=== PATIENT | female | born 1995 | race African-American/Black ===

== ENCOUNTER 2016-12-06 15:48 | Emergency (ER) | payer BC ==
[~2016-12-06] VITALS: Ht 162.6 cm; Wt 68.0 kg
[~2016-12-06 15:48] MED LIST: CIPR-225 PO; CIPR-226 PO; CIPR500T78 PO; HYDR-3812 PO; LISD70CA3 PO; METR500T PO; METR500T21 PO; PROM25TA14 PO
[2016-12-06] MEDS ORDERED: [UNRECOGNIZED DRUG - REMARK] (16:28)
[2016-12-06] MEDS ORDERED: PREN-53 PO (16:28)
[2016-12-06 17:13] LABS: BILIRUBIN,URINE NEGATIVE (NEGATIVE); KETONES,URINE NEGATIVE (NEGATIVE); LEUKOCYTE ESTERASE ,URINE 1+ (NEGATIVE); NITRITE,URINE NEGATIVE (NEGATIVE); PH,URINE 6.5 (5-9); PROTEIN,URINE NEGATIVE (NEGATIVE); UROBILINOGEN,URINE NORMAL (NORMAL)
[2016-12-06 17:23] LABS: BASOPHILS % (AUTO) 0 % (0-10); EOSINOPHILS # (AUTO) 0.2 10^3/uL (0.0-0.3); EOSINOPHILS % (AUTO) 1 % (0-10); LYMPHOCYTES # (AUTO) 2.1 X 10^3 (1.0-4.0); LYMPHOCYTES % (AUTO) 18 % (12-44); MEAN CORPUSCULAR HEMOGLOBIN 31 PG (25-34); MEAN CORPUSCULAR HGB CONC 35 G/DL (32-36); MEAN CORPUSCULAR VOLUME 89 FL (80-99); MEAN PLATELET VOLUME 9.5 FL (7.4-10.4); MONOCYTES # (AUTO) 0.9 X 10^3 (0.0-1.0); MONOCYTES % (AUTO) 8 % (0-12); NEUTROPHILS # (AUTO) 8.7 X 10^3 (1.8-7.8); NEUTROPHILS % (AUTO) 73 % (42-75); PLATELET COUNT 250 10^3/uL (130-400); RED BLOOD COUNT 4.25 10^6/uL (4.35-5.85); RED CELL DISTRIBUTION WIDTH 13.2 % (10.0-14.5)
[2016-12-06 17:40] LABS: ALANINE AMINOTRANSFERASE 18 U/L (0-55); ALBUMIN 4.3 G/DL (3.2-4.5); ANION GAP 10 MMOL/L (5-14); ASPARTATE AMINO TRANSFERASE 16 U/L (5-34); BILIRUBIN,TOTAL 0.2 MG/DL (0.1-1.0); BLOOD UREA NITROGEN 5 MG/DL (7-18); BUN/CREATININE RATIO 8; CALCIUM 9.1 MG/DL (8.5-10.1); CARBON DIOXIDE 24 MMOL/L (21-32); CHLORIDE 103 MMOL/L (98-107); CREATININE SERUM 0.66 MG/DL (0.60-1.30); GFR ESTIMATED > 60; GLUCOSE 82 MG/DL (70-105); POTASSIUM 3.5 MMOL/L (3.6-5.0); SODIUM 137 MMOL/L (135-145); TOTAL PROTEIN 6.6 G/DL (6.4-8.2)
--- NOTE | 2016-12-06 18:10 | ED Syncope ---
General Chief Complaint: Dizziness/Syncope Stated Complaint: LOC Nursing Triage Note: PT TO ED 7 W/ C/O POSS SYNCOPAL EPISODE WHILE IN SHOWER TODAY. PT REPORTS SHE HAS DONE THIS BEFORE AT HER [employer] BUT WAS TOLD BY THE NURSE "I DON'T KNOW WHAT WOULD CAUSE THIS." PT REPORTS SHE IS ALSO 11WKS . History of Present Illness Time Seen by Provider: 18:05 Initial Comments The patient is a 21-year-old black female who is 11 weeks . She was taking a shower about 30 minutes prior to her arrival here and felt as if she were about to pass out. Her significant other observe this and she sank slowly to the floor. She appeared unresponsive for about 30 seconds but had no motor activity. She reports that she had 2 similar episodes last week. She is also had intermittent issues with nausea and vomiting. This did not seem to precede the previously described episode Timing/Prior Episodes: Single Episode Today Symptoms Prior to Episode: Lightheadedness Precipitating Factors: None Loss of Consciousness: No Loss of Consciousness Current Symptoms: Back to Normal Allergies and Home Medications Allergies Coded Allergies: cefaclor (Unverified Allergy, Unknown, 02/17/15) Home Medications (Reported) [id number]/Iron Fumarate/FA/Dss 1 Each Tablet 1 EACH PO (Reported) Constitutional: see HPI EENTM: no symptoms reported Respiratory: no symptoms reported Cardiovascular: no symptoms reported Gastrointestinal: nausea Genitourinary: no symptoms reported Musculoskeletal: no symptoms reported Skin: no symptoms reported Psychiatric/Neurological: No Symptoms Reported Past Kramjau-Xeglqu-Ppktmy Hx Patient Social History Alcohol Use: Denies Use Recreational Drug Use: No Smoking Status: Never a Smoker Recent Foreign Travel: No Contact w/Someone Who Travel: No Recent Infectious Disease Expo: No Recent Hopitalizations: No Physical Abuse Screen: No Sexual Abuse: No Immunizations Up To Date Tetanus Booster (TDap): Less than 5yrs PED Vaccines UTD: Yes Seasonal Allergies Seasonal Allergies: No Surgeries HX Surgeries: Yes Surgeries: Abdominal, Tonsillectomy Respiratory Hx Respiratory Disorders: No Cardiovascular Hx Cardiac Disorders: No Reproductive System Hx Reproductive Disorders: No Female Reproductive Disorders: Denies Genitourinary Hx Genitourinary Disorders: No Gastrointestinal Hx Gastrointestinal Disorders: Yes Gastrointestinal Disorders: C-Diff, Irritable Bowel Musculoskeletal Hx Musculoskeletal Disorders: No Endocrine Hx Endocrine Disorders: No HEENT HX ENT Disorders: No Cancer Hx Cancer: No Psychosocial Hx Psychiatric Problems: No Integumentary HX Skin/Integumentary Disorder: No Family Medical History Significant Family History: GI Disease Family Medial History: Patient reports no known family medical history. Physical Exam Vital Signs Vital Sign - Last 12Hours 12/06/16 16:13 Temp 99.0 Pulse 71 Resp 20 B/P 115/76 Pulse Ox 99 O2 Delivery Room Air Capillary Refill : Less Than 3 Seconds General Appearance: No Apparent Distress WD/WN HEENT: Normal ENT Inspection Cardiovascular: Regular Rate, Rhythm No Edema No Gallop No JVD No Murmur Normal Peripheral Pulses Respiratory: Chest Non Tender Lungs Clear Normal Breath Sounds No Accessory Muscle Use No Respiratory Distress Gastrointestinal: Normal Bowel Sounds No Organomegaly No Pulsatile Mass Non Tender Soft Back: Normal Inspection No CVA Tenderness No Vertebral Tenderness Extremities: Normal Capillary Refill Normal Inspection Normal Range of Motion Non Tender No Calf Tenderness No Pedal Edema Neurologic/Psychiatric: Alert Oriented x3 No Motor/Sensory Deficits Normal Mood/Affect Cranial Nerves: Normal Hearing, Normal Speech, PERRL Motor/Sensory: No Motor Deficit, No Sensory Deficit Lymphatic: No Adenopathy Progress/Results/Core Measures Results/Orders Lab Results Laboratory Tests Test 12/06/16 17:03 12/06/16 17:15 Range/Units Urine Bacteria TRACE /HPF Urine Bilirubin NEGATIVE NEGATIVE Urine Casts NONE /LPF Urine Clarity CLEAR Urine Color YELLOW Urine Crystals NONE /LPF Urine Culture Indicated NO Urine Glucose (UA) NEGATIVE NEGATIVE Urine Ketones NEGATIVE NEGATIVE Urine Leukocyte Esterase 1+ H NEGATIVE Urine Mucus NEGATIVE /LPF Urine Nitrite NEGATIVE NEGATIVE Urine Other FEW SPERM H /HPF Urine Protein NEGATIVE NEGATIVE Urine RBC NONE /HPF Urine RBC (Auto) NEGATIVE NEGATIVE Urine Specific [place] 1.010 L 1.016-1.022 Urine Squamous Epithelial Cells 2-5 /HPF Urine Urobilinogen NORMAL NORMAL MG/DL Urine WBC 2-5 /HPF Urine pH 6.5 5-9 Alanine Aminotransferase (ALT/SGPT) 18 0-55 U/L Albumin 4.3 3.2-4.5 G/DL Alkaline Phosphatase 51 40-136 U/L Anion Gap 10 5-14 MMOL/L Aspartate Amino Transf (AST/SGOT) 16 5-34 U/L BUN/Creatinine Ratio 8 Basophils # (Auto) 0.0 0.0-0.1 10^3/uL Basophils (%) (Auto) 0 0-10 % Blood Urea Nitrogen 5 L 7-18 MG/DL Calcium Level 9.1 8.5-10.1 MG/DL Carbon Dioxide Level 24 21-32 MMOL/L Chloride Level 103 98-107 MMOL/L Creatinine 0.66 0.60-1.30 MG/DL Eosinophils # (Auto) 0.2 0.0-0.3 10^3/uL Eosinophils (%) (Auto) 1 0-10 % Estimat Glomerular Filtration Rate > 60 Glucose Level 82 70-105 MG/DL Hematocrit 38 35-52 % Hemoglobin 13.2 11.5-16.0 G/DL Lymphocytes # (Auto) 2.1 1.0-4.0 X 10^3 Lymphocytes (%) (Auto) 18 12-44 % Mean Corpuscular Hemoglobin 31 25-34 PG Mean Corpuscular Hemoglobin Concent 35 32-36 G/DL Mean Corpuscular Volume 89 80-99 FL Mean Platelet Volume 9.5 7.4-10.4 FL Monocytes # (Auto) 0.9 0.0-1.0 X 10^3 Monocytes (%) (Auto) 8 0-12 % Neutrophils # (Auto) 8.7 H 1.8-7.8 X 10^3 Neutrophils (%) (Auto) 73 42-75 % Platelet Count 250 130-400 10^3/uL Potassium Level 3.5 L 3.6-5.0 MMOL/L Red Blood Count 4.25 L 4.35-5.85 10^6/uL Red Cell Distribution Width 13.2 10.0-14.5 % Sodium Level 137 135-145 MMOL/L Total Bilirubin 0.2 0.1-1.0 MG/DL Total Protein 6.6 6.4-8.2 G/DL White Blood Count 12.0 H 4.3-11.0 10^3/uL My Orders Orders-ALFREDO BRIONES MD Cbc With Automated Diff (12/06/16 16:40) Comprehensive Metabolic Panel (12/06/16 16:40) Ua Culture If Indicated (12/06/16 16:40) Ekg Tracing (12/06/16 16:40) Vital Signs/I&O Vital Sign - Last 12Hours 12/06/16 16:13 Temp 99.0 Pulse 71 Resp 20 B/P 115/76 Pulse Ox 99 O2 Delivery Room Air Blood Pressure Mean: 89 Departure Impression Impression: Primary Impression: syncopal episode Disposition: 01 HOME, SELF-CARE Condition: Stable/Unchanged Departure-Patient Inst. Decision time for Depature: 18:09 Referrals: [facility] (PCP) Primary Care Physician Patient Instructions: Syncope (Fainting) (DC) Add. Discharge Instructions: All discharge instructions reviewed with patient and/or family. Voiced understanding. See Dr. Deleon next week. Increase fluid intake ALFREDO BRIONES MD Dec 06, 2016 18:10
[2016-12-06] MEDS ORDERED: NS IV 1000 ML 1,000 ML IV SCH (18:30)
[2016-12-06] MEDS ORDERED: PROM12.59 PO (20:15)
--- NOTE | 2016-12-06 20:18 | Diagnostic Imaging Report ---
INDICATION: Threatened COMPARISON: November 06, 2016 TECHNIQUE: Transpelvic sonogram was performed. FINDINGS: There is a single, live intrauterine with a crown-rump length measuring 5.1 cm, which is consistent with a 11 week 6 day fetus. heart rate was documented at 167 beats per minute. anatomy is not well seen at this early state of gestation. No abnormal adnexal lesion identified. No significant free fluid. IMPRESSION: Single, live intrauterine at 11 weeks and 6 days. Estimated due date is June 21, 2017. There has been adequate interval growth since the prior examination. No definite anomaly identified at this time. Recommend a full anatomic survey between 18-20 weeks gestational age. Dictated by: Dictated on workstation # [id number]
[2016-12-06 20:22] VITALS: BP 107/70
== END 2016-12-06 20:22 | disposition home or self-care (01) ==
LOC: EDUNIT# 15:48 → ER 15:50
DX: R55 Syncope and collapse (principal); O21.0 Mild hyperemesis gravidarum; Z3A.11 11 weeks gestation of pregnancy
CPT/HCPCS: 36415; 76801; 80053; 81000; 85025; 93005; 96360

== ENCOUNTER → 2016-12-27 | Outpatient (CLI) | payer BC ==
[~2016-12-27] MED LIST changes: +PREN-53 PO; +PROM12.59 PO; +[UNRECOGNIZED DRUG - REMARK]
--- OUTSIDE RECORDS SUMMARY | 2016-12-27 08:11 | XMS REPORT | Continuity of Care Document ---
Author Author [facility] Organization [facility] Address Unknown Phone Unavailable Allergies Active Description Code Type Severity Reaction Onset Reported/Identified Relationship to Patient Clinical Status Yes No Allergy Information Available [id number] Drug Allergy Unknown N/A 02/15/2015 Yes cefaclor [id number] Drug Allergy Unknown N/A 02/17/2015 Medications Problems Date Dx Coded Attending Type Code Diagnosis Diagnosed By 02/21/2015 LUIS ARMANDO KAPLAN MD Ot 038.9 SEPTICEMIA NOS 02/21/2015 LUIS ARMANDO KAPLAN MD Ot 041.10 BACTERIAL INFEC DUE TO UNSPEC STAPHYLOCO 02/21/2015 LUIS ARMANDO KAPLAN MD Ot 288.60 LEUKOCYTOSIS, UNSPECIFIED 02/21/2015 LUIS ARMANDO KAPLAN MD Ot 289.2 MESENTERIC LYMPHADENITIS 02/21/2015 LUIS ARMANDO KAPLAN MD Ot 314.01 ATTN DEFICIT W HYPERACT 02/21/2015 LUIS ARMANDO KAPLAN MD Ot 558.9 NONINF GASTROENTERIT NEC 02/21/2015 LUIS ARMANDO KAPLAN MD Ot 599.0 URIN TRACT INFECTION NOS 02/21/2015 LUIS ARMANDO KAPLAN MD Ot 617.9 ENDOMETRIOSIS NOS 02/21/2015 LUIS ARMANDO KAPLAN MD Ot 626.0 ABSENCE OF MENSTRUATION 02/21/2015 LUIS ARMANDO KAPLAN MD Ot 995.91 SEPSIS 02/21/2015 LUIS ARMANDO KAPLAN MD Ot E932.2 ADV EFF OVARIAN HORMONES 02/23/2015 JARED OSHEA Ot 789.00 03/09/2015 LUIS ANTONIO LINCOLN Ot 787.01 NAUSEA WITH VOMITING 03/09/2015 LUIS ANTONIO LINCOLN Ot 787.91 DIARRHEA 03/09/2015 LUIS ANTONIO LINCOLN Ot 789.00 ABDOMINAL PAIN, UNSPECIFIED SITE 03/09/2015 LUIS ANTONIO LINCOLN Ot 789.03 ABDOMINAL PAIN, RIGHT LOWER QUADRANT 03/31/2015 JARED OSHEA THERMODYNAMICS TEACHER Ot 789.00 07/21/2015 JARED OSHEA THERMODYNAMICS TEACHER Ot 789.00 09/22/2016 JARED OSHEA THERMODYNAMICS TEACHER Ot 789.00 ABDOMINAL PAIN, UNSPECIFIED SITE 09/22/2016 RESHMA CARDONA, JENNIFER T Ot K92.1 MELENA 09/22/2016 RESHMA CARDONA, JENNIFER T Ot R10.30 LOWER ABDOMINAL PAIN, UNSPECIFIED 09/22/2016 RESHMA CARDONA, JENNIFER T Ot R11.0 NAUSEA 09/22/2016 RESHMA CARDONA, JENNIFER T Ot R19.7 DIARRHEA, UNSPECIFIED 09/24/2016 RESHMA CARDONA, JENNIFER T Ot K92.1 MELENA 09/24/2016 RESHMA CARDONA, JENNIFER T Ot R10.30 LOWER ABDOMINAL PAIN, UNSPECIFIED 09/24/2016 RESHMA CARDONA, JENNIFER T Ot R11.0 NAUSEA 09/24/2016 RESHMA CARDONA, JENNIFER T Ot R19.7 DIARRHEA, UNSPECIFIED 10/02/2016 RESHMA CARDONA, JENNIFER T Ot K92.1 MELENA 10/02/2016 RESHMA CARDONA, JENNIFER T Ot R10.30 LOWER ABDOMINAL PAIN, UNSPECIFIED 10/02/2016 RESHMA CARDONA, EJNNIFER T Ot R11.0 NAUSEA 10/02/2016 RESHMA CARDONA, JENNIFER T Ot R19.7 DIARRHEA, UNSPECIFIED 10/03/2016 RESHMA CARDONA, JENNIFER T Ot K92.1 MELENA 10/03/2016 RESHMA CARDONA, JENNIFER T Ot R10.30 LOWER ABDOMINAL PAIN, UNSPECIFIED 10/03/2016 RESHMA CARDONA, JENNIFER T Ot R11.0 NAUSEA 10/03/2016 JENNIFER JUSTICE MD T Ot R19.7 DIARRHEA, UNSPECIFIED 11/06/2016 NAVNEET EASON MD Ot O20.0 THREATENED 11/06/2016 NAVNEET EASON MD Ot O23.591 INFECTION OTH PRT GENITL TRCT IN PREGNAN 11/06/2016 NAVNEET EASON MD, Ot Z3A.01 LESS THAN 8 WEEKS GESTATION OF 11/06/2016 JARED OSHEA THERMODYNAMICS TEACHER Ot 789.00 ABDOMINAL PAIN, UNSPECIFIED SITE 11/06/2016 JARED OSHEA THERMODYNAMICS TEACHER Ot 789.00 ABDOMINAL PAIN, UNSPECIFIED SITE 11/07/2016 NAVNETE EASON MD, Ot O20.0 THREATENED 11/07/2016 NAVNEET EASON MD, Ot O23.591 INFECTION OT PRT GENITL TRCT IN PREGNAN 11/07/2016 NAVNEET EASON MD, Ot Z3A.01 LESS THAN 8 WEEKS GESTATION OF 12/06/2016 JARED OSHEA THERMODYNAMICS TEACHER Ot 789.00 ABDOMINAL PAIN, UNSPECIFIED SITE 12/06/2016 JENNIFER JUSTICE MD Ot O21.0 MILD HYPEREMESIS GRAVIDARUM 12/06/2016 JENNIFER JUSTICE MD Ot R55 SYNCOPE AND COLLAPSE 12/06/2016 JENNIFER JUSTICE MD Ot Z3A.11 11 WEEKS GESTATION OF 12/09/2016 JENNIFER JUSTICE MD Ot O21.0 MILD HYPEREMESIS GRAVIDARUM 12/09/2016 JENNIFER JUSTICE MD Ot R55 SYNCOPE AND COLLAPSE 12/09/2016 JENNIFER JUSTICE MD Ot Z3A.11 11 WEEKS GESTATION OF Procedures Results Test Result Range Complete urinalysis with reflex to culture - 09/22/16 18:35 Urine color determination YELLOW NRG Urine clarity determination CLEAR NRG Urine pH measurement by test strip 6 5- 9 Specific gravity of urine by test strip 1.020 1.016-1.022 Urine protein assay by test strip, semi-quantitative NEGATIVE NEGATIVE Urine glucose detection by automated test strip NEGATIVE NEGATIVE Erythrocytes detection in urine sediment by light microscopy NEGATIVE NEGATIVE Urine ketones detection by automated test strip NEGATIVE NEGATIVE Urine nitrite detection by test strip NEGATIVE NEGATIVE Urine total bilirubin detection by test strip NEGATIVE NEGATIVE Urine urobilinogen measurement by automated test strip (mass/volume) NORMAL NORMAL Urine leukocyte esterase detection by dipstick NEGATIVE NEGATIVE Automated urine sediment erythrocyte count by microscopy (number/high power field) NONE NRG Automated urine sediment leukocyte count by microscopy (number/high power field ) RARE NRG Bacteria detection in urine sediment by light microscopy NONE NRG Squamous epithelial cells detection in urine sediment by light microscopy 2-5 NRG Crystals detection in urine sediment by light microscopy NONE NRG Casts detection in urine sediment by light microscopy NONE NRG Mucus detection in urine sediment by light microscopy NEGATIVE NRG Complete urinalysis with reflex to culture NO NRG Complete blood count (CBC) with automated white blood cell (WBC) differential - 09/22/16 18:40 Blood leukocytes automated count (number/volume) 9.8 10*3/ uL 4.3-11.0 Blood erythrocytes automated count (number/volume) 4.21 10*6 /uL 4.35-5.85 Venous blood hemoglobin measurement (mass/volume) 13.0 g/dL 11.5-16.0 Blood hematocrit (volume fraction) 38 % 35-52 Automated erythrocyte mean corpuscular volume 90 [foz_us] 80-99 Automated erythrocyte mean corpuscular hemoglobin (mass per erythrocyte) 31 pg 25-34 Automated erythrocyte mean corpuscular hemoglobin concentration measurement ( mass/volume) 34 g/dL 32-36 Automated erythrocyte distribution width ratio 12.7 % 10.0-14.5 Automated blood platelet count (count/volume) 278 10*3/uL 130-400 Automated blood platelet mean volume measurement 10.4 [foz_ us] 7.4-10.4 Automated blood neutrophils/100 leukocytes 62 % 42-75 Automated blood lymphocytes/100 leukocytes 29 % 12-44 Blood monocytes/100 leukocytes 8 % 0-12 Automated blood eosinophils/100 leukocytes 2 % 0-10 Automated blood basophils/100 leukocytes 0 % 0-10 Blood neutrophils automated count (number/volume) 6.0 10*3 1.8-7.8 Blood lymphocytes automated count (number/volume) 2.8 10*3 1.0-4.0 Blood monocytes automated count (number/volume) 0.8 10*3 0.0-1.0 Automated eosinophil count 0.2 10*3/uL 0.0-0.3 Automated blood basophil count (count/volume) 0.0 10*3/uL 0.0-0.1 Serum or plasma choriogonadotropin ( test) detection - 09/22/16 18:40 Serum or plasma choriogonadotropin ( test) detection NEGATIVE NEGATIVE Erythrocyte sedimentation rate by westergren method - 09/22/16 18:40 Erythrocyte sedimentation rate by westergren method 6 mm 0-20 Comprehensive metabolic panel - 09/22/16 18:40 Serum or plasma sodium measurement (moles/volume) 140 mmol/ L 135-145 Serum or plasma potassium measurement (moles/volume) 3.9 mmol/L 3.6-5.0 Serum or plasma chloride measurement (moles/volume) 105 mmol /L 98-107 Carbon dioxide 24 mmol/L 21-32 Serum or plasma anion gap determination (moles/volume) 11 mmol/L 5-14 Serum or plasma urea nitrogen measurement (mass/volume) 11 mg/dL 7-18 Serum or plasma creatinine measurement (mass/volume) 0.84 mg /dL 0.60-1.30 Serum or plasma urea nitrogen/creatinine mass ratio 13 NRG Serum or plasma creatinine measurement with calculation of estimated glomerular filtration rate > NRG Serum or plasma glucose measurement (mass/volume) 90 mg/dL 70-105 Serum or plasma calcium measurement (mass/volume) 9.1 mg/dL 8.5-10.1 Serum or plasma total bilirubin measurement (mass/volume) 0.4 mg/dL 0.1-1.0 Serum or plasma alkaline phosphatase measurement (enzymatic activity/volume) 67 U/L 40-136 Serum or plasma aspartate aminotransferase measurement (enzymatic activity/ volume) 16 U/L 5-34 Serum or plasma alanine aminotransferase measurement (enzymatic activity/volume ) 14 U/L 0-55 Serum or plasma protein measurement (mass/volume) 6.8 g/dL 6.4-8.2 Serum or plasma albumin measurement (mass/volume) 4.5 g/dL 3.2-4.5 Magnesium - 09/22/16 18:40 Magnesium 2.2 mg/dL 1.8-2.4 Serum or plasma C reactive protein measurement (mass/volume) - 09/22/16 18:40 Serum or plasma C reactive protein measurement (mass/volume) 0.08 mg/dL 0.00-0.50 Automated blood complete blood count (hemogram) panel - 11/06/16 07:36 Blood leukocytes automated count (number/volume) 16.5 10*3/ uL 4.3-11.0 Blood erythrocytes automated count (number/volume) 4.31 10*6 /uL 4.35-5.85 Venous blood hemoglobin measurement (mass/volume) 13.2 g/dL 11.5-16.0 Blood hematocrit (volume fraction) 38 % 35-52 Automated erythrocyte mean corpuscular volume 89 [foz_us] 80-99 Automated erythrocyte mean corpuscular hemoglobin (mass per erythrocyte) 31 pg 25-34 Automated erythrocyte mean corpuscular hemoglobin concentration measurement ( mass/volume) 35 g/dL 32-36 Automated erythrocyte distribution width ratio 12.6 % 10.0-14.5 Automated blood platelet count (count/volume) 258 10*3/uL 130-400 Automated blood platelet mean volume measurement 10.1 [foz_ us] 7.4-10.4 Whole blood basic metabolic panel - 11/06/16 07:36 Serum or plasma sodium measurement (moles/volume) 134 mmol/ L 135-145 Serum or plasma potassium measurement (moles/volume) 3.7 mmol/L 3.6-5.0 Serum or plasma chloride measurement (moles/volume) 103 mmol /L 98-107 Carbon dioxide 20 mmol/L 21-32 Serum or plasma anion gap determination (moles/volume) 11 mmol/L 5-14 Serum or plasma urea nitrogen measurement (mass/volume) 5 mg /dL 7-18 Serum or plasma creatinine measurement (mass/volume) 0.68 mg /dL 0.60-1.30 Serum or plasma urea nitrogen/creatinine mass ratio 7 NRG Serum or plasma creatinine measurement with calculation of estimated glomerular filtration rate > NRG Serum or plasma glucose measurement (mass/volume) 88 mg/dL 70-105 Serum or plasma calcium measurement (mass/volume) 9.1 mg/dL 8.5-10.1 ABO+Rh group - 11/06/16 07:36 ABO+Rh group OP NRG Serum or plasma choriogonadotropin measurement (units/volume) - 11/06/16 07:36 Serum or plasma choriogonadotropin measurement (units/volume) [id number] m[iU]/mL <5 Complete urinalysis with reflex to culture - 11/06/16 08:33 Urine color determination YELLOW NRG Urine clarity determination CLEAR NRG Urine pH measurement by test strip 8 5- 9 Specific gravity of urine by test strip 1.015 1.016-1.022 Urine protein assay by test strip, semi-quantitative 2+ NEGATIVE Urine glucose detection by automated test strip NEGATIVE NEGATIVE Erythrocytes detection in urine sediment by light microscopy 5+ NEGATIVE Urine ketones detection by automated test strip NEGATIVE NEGATIVE Urine nitrite detection by test strip NEGATIVE NEGATIVE Urine total bilirubin detection by test strip NEGATIVE NEGATIVE Urine urobilinogen measurement by automated test strip (mass/volume) NORMAL NORMAL Urine leukocyte esterase detection by dipstick 3+ NEGATIVE Automated urine sediment erythrocyte count by microscopy (number/high power field) [HPF] NRG Automated urine sediment leukocyte count by microscopy (number/high power field ) [HPF] NRG Bacteria detection in urine sediment by light microscopy MODERATE NRG Squamous epithelial cells detection in urine sediment by light microscopy 5-10 NRG Crystals detection in urine sediment by light microscopy PRESENT NRG Casts detection in urine sediment by light microscopy NONE NRG Mucus detection in urine sediment by light microscopy NEGATIVE NRG Complete urinalysis with reflex to culture YES NRG Amorphous sediment detection in urine sediment by light microscopy MOD JUANY PHOSPHATE NRG Bacterial urine culture - 11/06/16 08:33 Bacterial urine culture [id number] NRG COLONY COUNT 10,000/ML - 100,000/ML NRG FTX;REPORTABLE SENSITIVITY REPORTED 11/07 17:15 NRG URINE CULTURE RESULTS PLUS NRG Bacterial susceptibility panel - 11/06/16 08:33 Gentamicin susceptibility test by minimum inhibitory concentration <= NRG Trimethoprim/sulfamethoxazole susceptibility test by minimum inhibitoryconcentration <= NRG Ampicillin susceptibility test by minimum inhibitory concentration >= NRG Tobramycin susceptibility test by minimum inhibitory concentration <= NRG Cefazolin susceptibility test by minimum inhibitory concentration <= NRG Ceftriaxone susceptibility test by minimum inhibitory concentration <= NRG Ampicillin/sulbactam susceptibility test by minimum inhibitory concentration 16 NRG Piperacillin/tazobactam susceptibility test by minimum inhibitory concentration <= NRG Ciprofloxacin susceptibility test by minimum inhibitory concentration <= NRG Meropenem susceptibility test by minimum inhibitory concentration <= NRG Nitrofurantoin susceptibility test by minimum inhibitory concentration 32 NRG Aztreonam susceptibility test by minimum inhibitory concentration <= NRG Extended spectrum beta lactamase (ESBL) producing bacteria susceptibility test by minimum inhibitory concentration - NRG Bacteria identification in genital specimen by aerobe culture - 11/06/16 08:40 FREE TEXT EXTERNAL SEE COMMENTS NRG QUANTITY OF GROWTH Moderate Growth NRG Bacteria identification in genital specimen by aerobe culture [id number] NRG FREE TEXT EXTERNAL 2 PLUS NORMAL NIKOLAY NRG Microscopic examination by wet preparation - 11/06/16 08:40 WET PREP RESULTS NO YEAST OBSERVED, NO TRICHOMONAS OBSERVED NRG Chlamydia trachomatis DNA detection by probe and signal amplification method - 11/06/16 08:40 Chlamydia trachomatis DNA detection by probe and target amplification method Negative Negative Neisseria gonorrhoeae DNA detection by probe and signal amplification method - 11/06/16 08:40 Gonorrhea amp DNA-urine Negative Negative Complete urinalysis with reflex to culture - 12/06/16 17:03 Urine color determination YELLOW NRG Urine clarity determination CLEAR NRG Urine pH measurement by test strip 6.5 5 -9 Specific gravity of urine by test strip 1.010 1.016-1.022 Urine protein assay by test strip, semi-quantitative NEGATIVE NEGATIVE Urine glucose detection by automated test strip NEGATIVE NEGATIVE Erythrocytes detection in urine sediment by light microscopy NEGATIVE NEGATIVE Urine ketones detection by automated test strip NEGATIVE NEGATIVE Urine nitrite detection by test strip NEGATIVE NEGATIVE Urine total bilirubin detection by test strip NEGATIVE NEGATIVE Urine urobilinogen measurement by automated test strip (mass/volume) NORMAL NORMAL Urine leukocyte esterase detection by dipstick 1+ NEGATIVE Automated urine sediment erythrocyte count by microscopy (number/high power field) NONE NRG Automated urine sediment leukocyte count by microscopy (number/high power field ) [HPF] NRG Bacteria detection in urine sediment by light microscopy TRACE NRG Squamous epithelial cells detection in urine sediment by light microscopy 2-5 NRG Crystals detection in urine sediment by light microscopy NONE NRG Casts detection in urine sediment by light microscopy NONE NRG Mucus detection in urine sediment by light microscopy NEGATIVE NRG Complete urinalysis with reflex to culture NO NRG Other elements identification in urine sediment by light microscopy FEW SPERM NRG Complete blood count (CBC) with automated white blood cell (WBC) differential - 12/06/16 17:15 Blood leukocytes automated count (number/volume) 12.0 10*3/ uL 4.3-11.0 Blood erythrocytes automated count (number/volume) 4.25 10*6 /uL 4.35-5.85 Venous blood hemoglobin measurement (mass/volume) 13.2 g/dL 11.5-16.0 Blood hematocrit (volume fraction) 38 % 35-52 Automated erythrocyte mean corpuscular volume 89 [foz_us] 80-99 Automated erythrocyte mean corpuscular hemoglobin (mass per erythrocyte) 31 pg 25-34 Automated erythrocyte mean corpuscular hemoglobin concentration measurement ( mass/volume) 35 g/dL 32-36 Automated erythrocyte distribution width ratio 13.2 % 10.0-14.5 Automated blood platelet count (count/volume) 250 10*3/uL 130-400 Automated blood platelet mean volume measurement 9.5 [foz_us ] 7.4-10.4 Automated blood neutrophils/100 leukocytes 73 % 42-75 Automated blood lymphocytes/100 leukocytes 18 % 12-44 Blood monocytes/100 leukocytes 8 % 0-12 Automated blood eosinophils/100 leukocytes 1 % 0-10 Automated blood basophils/100 leukocytes 0 % 0-10 Blood neutrophils automated count (number/volume) 8.7 10*3 1.8-7.8 Blood lymphocytes automated count (number/volume) 2.1 10*3 1.0-4.0 Blood monocytes automated count (number/volume) 0.9 10*3 0.0-1.0 Automated eosinophil count 0.2 10*3/uL 0.0-0.3 Automated blood basophil count (count/volume) 0.0 10*3/uL 0.0-0.1 Comprehensive metabolic panel - 12/06/16 17:15 Serum or plasma sodium measurement (moles/volume) 137 mmol/ L 135-145 Serum or plasma potassium measurement (moles/volume) 3.5 mmol/L 3.6-5.0 Serum or plasma chloride measurement (moles/volume) 103 mmol /L 98-107 Carbon dioxide 24 mmol/L 21-32 Serum or plasma anion gap determination (moles/volume) 10 mmol/L 5-14 Serum or plasma urea nitrogen measurement (mass/volume) 5 mg /dL 7-18 Serum or plasma creatinine measurement (mass/volume) 0.66 mg /dL 0.60-1.30 Serum or plasma urea nitrogen/creatinine mass ratio 8 NRG Serum or plasma creatinine measurement with calculation of estimated glomerular filtration rate > NRG Serum or plasma glucose measurement (mass/volume) 82 mg/dL 70-105 Serum or plasma calcium measurement (mass/volume) 9.1 mg/dL 8.5-10.1 Serum or plasma total bilirubin measurement (mass/volume) 0.2 mg/dL 0.1-1.0 Serum or plasma alkaline phosphatase measurement (enzymatic activity/volume) 51 U/L 40-136 Serum or plasma aspartate aminotransferase measurement (enzymatic activity/ volume) 16 U/L 5-34 Serum or plasma alanine aminotransferase measurement (enzymatic activity/volume ) 18 U/L 0-55 Serum or plasma protein measurement (mass/volume) 6.6 g/dL 6.4-8.2 Serum or plasma albumin measurement (mass/volume) 4.3 g/dL 3.2-4.5 Encounters ACCT No. Visit Date/Time Discharge Status Pt. Type Provider Facility Loc./Unit Complaint [id number] 12/06/2016 15:50:00 2016 20:22:00 DIS Emergency RESHMA CARDONA, JENNIFER Burt [facility] ER LOC [id number] 11/06/2016 07:17:00 2015 10:02:00 DIS Emergency JENARO CARDONA, NAVNEET De La Rosa [facility] ER VAG BLEEDING/CRAMPING NAUSEA 8 WKS PREG [id number] 09/22/2016 18:12:00 2015 19:45:00 DIS Emergency RESHMA CARDONA, JENNIFER Burt [facility] ER BLOOD IN STOOL [id number] 03/09/2015 15:45:00 2014 15:45:00 CAN Emergency LUIS ANTONIO LINCOLN [facility] ER ABD PAIN,N/V/D,LEUKOCYTOSIS [id number] 02/17/2015 14:58:00 2014 10:25:00 DIS Inpatient EUSEBIO CARDONA, LUIS ARMANDO Falcon [facility] 4TH PYELONEPHRITIS [id number] 02/15/2015 15:21:00 2014 23:59:59 CLS Outpatient JARED OSHEA [facility] RAD ABDOMINAL PAIN
--- NOTE | 2016-12-30 08:54 | ECHOCARDIOGRAPHY REPORT ---
PROCEDURE PHYSICIAN: GIGI SANTANA DATE OF PROCEDURE: 12/27/2016 TWO DIMENSIONAL ECHOCARDIOGRAM REPORT PRIMARY PHYSICIAN: OTHER PHYSICIAN: REFERRING PHYSICIAN: ORDERING PHYSICIAN: Dr. Santana INDICATION FOR THE PROCEDURE: Syncope. MEASUREMENTS DERIVED VALUES LV DIAMETER (LAX) NORMALS NORMALS Diastolic 4.4 (3.6-5.2) Eject. Fract. (60%+/-6%) Systolic (2.3-3.9) Diastolic Vol. % Shortening (0.22-0.42) Systolic Vol. Aortic Root 2.5 IVS THICKNESS Diastolic 0.8 (0.6-1.1) LVPW THICKNESS Diastolic 1.1 (0.6-1.1) LA DIAMETER Systolic 3.1 (2.1-3.7) DESCRIPTION: Two-dimensional echocardiography shows normal global left ventricular systolic function with normal regional wall motion. Left ventricular ejection fraction is approximately 60%. Aortic, mitral and tricuspid valve leaflets show good leaflet excursion. There is no significant pericardial effusion. There is no significant pericardial effusion. Aortic valve leaflet structure is not very well visualized. Doppler imaging does not indicate any evidence of any significant valvular stenosis. No significant valvular regurgitation is seen. Inferior vena cava appears to be of normal size and exhibits inspiratory collapse. There is no evidence of any significant mitral intracardiac shunt on this transthoracic echocardiographic study. There appears to be trivial tricuspid regurgitation. Pulmonary artery systolic pressure is estimated to be approximately 20 to 25 mmHg. CONCLUSION: 1. Normal global left ventricular systolic function with an ejection fraction of approximately 60%. 2. Trivial tricuspid regurgitation (within normal limits) with pulmonary artery systolic pressure approximately 20 to 25 mmHg. 3. No evidence of any significant valvular stenosis. Job ID: [id number] Dictated Date: 12/29/2016 11:23:28 Animal Care Worker Date: 12/30/2016 08:41:19 / sandip
== END ==
LOC: CARD 08:07
PROVIDERS: ATTEND Internal Medicine Cardiovascular Disease
DX: R55 Syncope and collapse (principal)
CPT/HCPCS: 93306

== ENCOUNTER → 2017-01-23 | Outpatient (CLI) | payer BC ==
--- OUTSIDE RECORDS SUMMARY | 2017-01-23 10:07 | XMS REPORT | Continuity of Care Document ---
Author Author [facility] Organization [facility] Address Unknown Phone Unavailable Allergies Active Description Code Type Severity Reaction Onset Reported/Identified Relationship to Patient Clinical Status Yes No Allergy Information Available [id number] Drug Allergy Unknown N/A 02/15/2015 Yes cefaclor [id number] Drug Allergy Unknown N/A 02/17/2015 Medications Problems [...] PAIN, RIGHT LOWER QUADRANT 03/31/2015 JARED OSHEA JOINER Ot 789.00 07/21/2015 JARED OSHEA JOINER Ot 789.00 09/22/2016 JARED OSHEA JOINER Ot 789.00 ABDOMINAL PAIN, UNSPECIFIED SITE 09/22/2016 RESHMA CARDONA, JENNIFER T Ot K92.1 MELENA 09/22/2016 RESHMA CARDONA, JENINFER T Ot R10.30 LOWER ABDOMINAL PAIN, UNSPECIFIED [...] LOWER ABDOMINAL PAIN, UNSPECIFIED 10/02/2016 RESHMA CARDONA, JENNIFER T Ot R11.0 NAUSEA 10/02/2016 RESHMA CARDONA, [...] 8 WEEKS GESTATION OF 11/06/2016 JARED OSHEA JOINER Ot 789.00 ABDOMINAL PAIN, UNSPECIFIED SITE 11/06/2016 JARED OSHEA JOINER Ot 789.00 ABDOMINAL PAIN, UNSPECIFIED SITE 11/07/2016 NAVNEET EASON MD, Ot O20.0 THREATENED 11/07/2016 NAVNEET EASON MD, Ot O23.591 INFECTION OT PRT GENITL TRCT IN PREGNAN 11/07/2016 NAVNEET EASON MD, Ot Z3A.01 LESS THAN 8 WEEKS GESTATION OF 12/06/2016 JARED OSHEA JOINER Ot 789.00 ABDOMINAL PAIN, UNSPECIFIED SITE 12/06/2016 JENNIFER JUSTICE MD Ot O21.0 MILD HYPEREMESIS GRAVIDARUM 12/06/2016 JENNIFER JUSTICE MD T Ot R55 SYNCOPE AND COLLAPSE 12/06/2016 JENNIFER JUSTICE MD Ot Z3A.11 11 WEEKS GESTATION OF 12/09/2016 JENNIFER JUSTICE MD Ot O21.0 MILD HYPEREMESIS GRAVIDARUM 12/09/2016 JENNIFER JUSTICE MD T Ot R55 SYNCOPE AND COLLAPSE 12/09/2016 JENNIFER JUSTICE MD T Ot Z3A.11 11 WEEKS GESTATION OF 12/27/2016 JARED OSHEA JOINER Ot 789.00 ABDOMINAL PAIN, UNSPECIFIED SITE 01/09/2017 LEW CARDONA FAC, GIGI ESCALANTE CCDS Ot R55 SYNCOPE AND COLLAPSE Procedures Results Test Result Range Complete urinalysis [...] 07:36 Serum or plasma choriogonadotropin measurement (units/volume) 566456 m[iU]/mL <5 Complete urinalysis with reflex to [...] culture - 11/06/16 08:33 Bacterial urine culture [id number] NRG COLONY COUNT 10,000/ML - 100,000/ML NRG [...] identification in genital specimen by aerobe culture [id number] NRG FREE TEXT EXTERNAL 2 PLUS NORMAL [...] Status Pt. Type Provider Facility Loc./Unit Complaint [id number] 12/06/2016 15:50:00 2016 20:22:00 DIS Emergency JENNIFER JUSTICE MD [facility] ER LOC [id number] 11/06/2016 07:17:00 2015 10:02:00 DIS Emergency NAVNEET EASON MD [facility] ER VAG BLEEDING/CRAMPING NAUSEA 8 WKS PREG [id number] 09/22/2016 18:12:00 2015 19:45:00 DIS Emergency JENNIFER JUSTICE MD [facility] ER BLOOD IN STOOL [id number] 03/09/2015 15:45:00 2014 15:45:00 CAN Emergency LUIS ANTONIO LINCOLN [facility] ER ABD PAIN,N/V/D,LEUKOCYTOSIS [id number] 02/17/2015 14:58:00 2014 10:25:00 DIS Inpatient EUSEBIO CARDONA, LUIS ARMADNO Falcon [facility] 4TH PYELONEPHRITIS [id number] 02/15/2015 15:21:00 2014 23:59:59 CLS Outpatient JARED OSHEA [facility] RAD ABDOMINAL PAIN [id number] 12/27/2016 08:07:00 ACT Outpatient LEW CARDONA FACC, GIGI ESCALANTE CCDS [facility] CARD SYNCOPE
--- NOTE | 2017-01-23 14:32 | Diagnostic Imaging Report ---
INDICATION: Undergoing anatomical evaluation. TECHNIQUE: Multiple real-time grayscale images were obtained of the gravid uterus. CORRELATION STUDY: 12/06/2016, 11/06/2016. FINDINGS: There is a single intrauterine in a reported variable presentation. There appears to be normal amount of amniotic fluid. Placenta is posterior and without evidence for previa. Cervical length is 5.3 cm with the placental margins approximately 2 cm from the cervix. anatomical evaluation has an unremarkable appearance. However, the cardiac structures are not well evaluated and/or demonstrated on this study. Biometrical measurements are as follows: Biparietal diameter 3.89 cm, age 17 weeks 6 days. Head circumference 15.49 cm, age 18 weeks 4 days. Abdominal circumference 13.03 cm, age 18 weeks 4 days. Femur length 2.45 cm, age 17 weeks 3 days. Sonographic estimated age: 18 weeks 1 day. Sonographic estimated date of delivery: June 25, 2017. heart rate: 144 BPM Estimated Weight: 221 gm (+/- 32 gm) LMP Percentile: 39% IMPRESSION: 1. Single intrauterine in a variable presentation. Sonographic estimated age of 18 weeks 1 day for an estimated date of delivery of June 25, 2017. Dictated by: Dictated on workstation # [id number]
== END ==
LOC: RAD 10:03
PROVIDERS: ATTEND Obstetrics & Gynecology
DX: Z36 Encounter for antenatal screening of mother (principal); Z3A.18 18 weeks gestation of pregnancy
CPT/HCPCS: 76805

== ENCOUNTER → 2017-03-10 | Outpatient (CLI) | payer BC ==
--- NOTE | 2017-03-10 17:26 | Diagnostic Imaging Report ---
EXAMINATION: OB ultrasound. INDICATION: Evaluate the heart to complete survey. FINDINGS: Four-chamber view is performed and appears unremarkable. The heart rate is 125 beats per minute. The placenta is posterior. No placenta previa. The cervix is 6.5 cm in length and is closed. IMPRESSION: Completed survey. Dictated by: Dictated on workstation # [id number]
== END ==
LOC: RAD 14:57
PROVIDERS: ATTEND Obstetrics & Gynecology
DX: Z36 Encounter for antenatal screening of mother (principal); Z3A.00 Weeks of gestation of pregnancy not specified
CPT/HCPCS: 76816

== ENCOUNTER 2017-04-29 17:30 | Outpatient (CLI) | payer BC ==
[~2017-04-29] VITALS: Ht 162.6 cm; Wt 82.1 kg
[2017-04-29 17:43] VITALS: BP 118/64
[2017-04-29] MEDS: LACTATED RINGERS 1,000 ML IV SCH ×2 (18:40→22:34)
[2017-04-29 18:52] LABS: BASOPHILS # (AUTO) 0.1 10^3/uL (0.0-0.1); BASOPHILS % (AUTO) 0 % (0-10); EOSINOPHILS # (AUTO) 0.2 10^3/uL (0.0-0.3); EOSINOPHILS % (AUTO) 1 % (0-10); LYMPHOCYTES # (AUTO) 1.3 X 10^3 (1.0-4.0); LYMPHOCYTES % (AUTO) 6 % (12-44); MEAN CORPUSCULAR HEMOGLOBIN 31 PG (25-34); MEAN CORPUSCULAR HGB CONC 34 G/DL (32-36); MEAN CORPUSCULAR VOLUME 91 FL (80-99); MEAN PLATELET VOLUME 10.6 FL (7.4-10.4); MONOCYTES # (AUTO) 1.6 X 10^3 (0.0-1.0); MONOCYTES % (AUTO) 8 % (0-12); NEUTROPHILS # (AUTO) 17.6 X 10^3 (1.8-7.8); NEUTROPHILS % (AUTO) 85 % (42-75); PLATELET COUNT 199 10^3/uL (130-400); RED BLOOD COUNT 4.29 10^6/uL (4.35-5.85); RED CELL DISTRIBUTION WIDTH 12.6 % (10.0-14.5); WHITE BLOOD COUNT 20.8 10^3/uL (4.3-11.0)
[2017-04-29 18:53] LABS: BILIRUBIN,URINE NEGATIVE (NEGATIVE); KETONES,URINE 4+ (NEGATIVE); LEUKOCYTE ESTERASE ,URINE NEGATIVE (NEGATIVE); NITRITE,URINE NEGATIVE (NEGATIVE); PH,URINE 7 (5-9); PROTEIN,URINE NEGATIVE (NEGATIVE); UROBILINOGEN,URINE NORMAL (NORMAL)
[2017-04-29 19:08] LABS: WBC,URINE 0-2 /HPF
[2017-04-29 19:13] LABS: ALANINE AMINOTRANSFERASE 38 U/L (0-55); ALBUMIN 3.6 GM/DL (3.2-4.5); ANION GAP 13 MMOL/L (5-14); ASPARTATE AMINO TRANSFERASE 34 U/L (5-34); BILIRUBIN,TOTAL 0.4 MG/DL (0.1-1.0); BLOOD UREA NITROGEN 8 MG/DL (7-18); BUN/CREATININE RATIO 14 (0-20); CALCIUM 9.1 MG/DL (8.5-10.1); CARBON DIOXIDE 20 MMOL/L (21-32); CHLORIDE 104 MMOL/L (98-107); CREATININE SERUM 0.56 MG/DL (0.60-1.30); GFR ESTIMATED > 60; GLUCOSE 76 MG/DL (70-105); HEMOLYSIS 29 (-100-29); ICTERUS 0.7 (-100-1.9); LIPEMIA 8 (-100-49); POTASSIUM 3.7 MMOL/L (3.6-5.0); SODIUM 137 MMOL/L (135-145); TOTAL PROTEIN 6.8 GM/DL (6.4-8.2)
[2017-04-29 19:19] LABS: BAND NEUTROPHILS 5 %; BASOPHILS % (MANUAL) 0 %; EOSINOPHILS % (MANUAL) 0 %; LYMPHOCYTES % (MANUAL) 7 %; NEUTROPHILS % (MANUAL) 85 %
[2017-04-29] MEDS ORDERED: PROMETHAZINE INJ 25 MG/ML (PHENERGAN) AMP IVP PRN (20:45)
[2017-04-29 22:00] VITALS: BP 114/67
[2017-04-29 23:58] VITALS: BP 90/54
[2017-04-30] MEDS: LACTATED RINGERS 1,000 ML IV SCH ×2 (02:20→06:21)
[2017-04-30] MEDS ORDERED: PROM25SU43 RC (07:52)
[2017-04-30 07:54] VITALS: BP 111/58
--- NOTE | 2017-04-30 08:14 | Progress Note-Standard ---
Standard Progress Note Progress Notes/Assess & Plan Date Seen 04/30/17 Time Seen by Provider: 08:00 Assess & Plan/Chief Complaint HD#2 22 y/o G1 @ 32w0d admitted for n/v by Dr. Barcenas for observation overnight, see her notes for complete details This AM, feels well. Slept, has not vomited, ate a sandwich. Fetus active no LOF VB CTX O: VS - Last 72 Hours, by Label 04/29/17 04/29/17 04/29/17 04/29/17 17:43 19:57 22:00 23:58 Temp 97.6 97.2 98.5 97.0 Pulse 117 102 86 Resp 16 16 16 B/P (MAP) 118/64 114/67 90/54 Pulse Ox 97 97 O2 Delivery Room Air Room Air Room Air Gen NAD Abd Soft gravid nttp FHR 130/mod ronnie/reactive TOCO occasional mild irritability A/P: 22 y/o G1 @ 32w0d with n/v thought due to gastroenteritis - improved Leukocytosis, ketonuria on admission Will d/c home this AM with return precautions Cx appt with Dr. Barcenas this AM and return next week Phenergan supp sent to pharmacy Labs Laboratory Tests 04/29/17 18:30 NICOLE GONZALEZ MD Apr 30, 2017 08:14
--- NOTE | 2017-04-30 08:16 | Discharge Inst-Women's Service ---
Discharge Inst-Women's Serv Depart Medication/Instructions New, Converted or Re-Newed RX: Transmitted to Pharmacy Final Diagnosis Gastroenteritis, n/v in third trimester Consults/Follow Up Additional Follow Up: Yes Orders/Referrals One week with Dr. Barcenas for routine OB visit Activity Activity: Activity as Tolerated NO SMOKING: NO SMOKING Diet Discharge Diet: No Restrictions Symptoms to Report to : Bleeding Excessive, Pain Increased, Fever Over 101 Degrees F call for decreased movement, contractions, loss of fluid, vaginal bleeding, increased nausea/vomiting, any other concerns For Any Problems or Questions: Contact Your Physician, Go to Emergency Room NICOLE GONZALEZ MD Apr 30, 2017 08:16
[2017-04-30 09:10] VITALS: BP 111/58
== END 2017-04-30 09:10 | disposition home or self-care (01) ==
LOC: LDRP 17:30 → WSo 17:30 → LDRP 20:30 → WSo 04-30 09:10
PROVIDERS: ATTEND Obstetrics & Gynecology
DX: O99.613 Diseases of the digestive system complicating pregnancy, third trimester (principal); K52.9 Noninfective gastroenteritis and colitis, unspecified; Z3A.32 32 weeks gestation of pregnancy
CPT/HCPCS: 36415; 80053; 81000; 85007; 85027; 96361; 96374; 99214

== ENCOUNTER → 2017-05-28 | Outpatient (CLI) | payer BC ==
[~2017-05-28] MED LIST changes: +MAGN400T6 PO; +METO-351 PO; +PROM25SU43 RC
--- NOTE | 2017-05-28 15:52 | Diagnostic Imaging Report ---
INDICATION: Size versus date discrepancy. TECHNIQUE: Multiple real-time grayscale images were obtained over the gravid uterus. COMPARISON: None FINDINGS: There is a single viable intrauterine currently in cephalic presentation. Upper limits amount of amniotic fluid with an index at 19 cm. Placenta is along the right posterior aspect without findings to suggest previa. Biometrical measurements are as follows: Biparietal 9.1 cm, age 37 weeks 0 days. Head circumference 33.92 cm, age 39 weeks 0 days. Abdominal circumference 30.95 cm, age 35 weeks 0 days. Femur length 6.5 cm, age 33 weeks 6 days. Sonographic estimate age: 36 weeks 2 days. Sonographic estimated date of delivery: 06-23-2017. Estimated Weight: 2626 gm (+/- 383 gm). LMP percentile: 30%. heart rate: 138 beats per minute. number: 1 of 1. There is variation of the biometrical growth parameters with the head measurements measuring larger than the abdominal circumference and femur length. There is significant variation in the growth parameters ranging from 39 weeks to 33 weeks 6 days. IMPRESSION: Single viable intrauterine currently in cephalic presentation. Current sonographic estimated age is 36 weeks 2 days for an estimated date of delivery June 23, 2017. While this corresponds to appropriate dates from previous ultrasound imaging, there is fairly significant variation in the biometrical growth parameters. Some of this may be technical; however, given the distribution can be seen with underlying intrauterine growth retardation. Continued short-term followup obstetrical sonogram imaging is recommended. Dictated by: Dictated on workstation # [id number]
== END ==
LOC: RAD 12:05
PROVIDERS: ATTEND Obstetrics & Gynecology
DX: O26.843 Uterine size-date discrepancy, third trimester (principal); Z3A.36 36 weeks gestation of pregnancy
CPT/HCPCS: 76816

== ENCOUNTER 2017-05-30 11:55 | Outpatient (CLI) | payer BC, MEDICAID ==
[~2017-05-30] VITALS: Ht 162.6 cm; Wt 88.0 kg
[~2017-05-30 11:55] MED LIST changes: -MAGN400T6 PO; -METO-351 PO
[2017-05-30 12:30] VITALS: BP 113/66
[2017-05-30 13:00] VITALS: BP 101/59
[2017-05-30 13:23] LABS: BASOPHILS % (AUTO) 0 % (0-10); EOSINOPHILS # (AUTO) 0.2 10^3/uL (0.0-0.3); EOSINOPHILS % (AUTO) 1 % (0-10); LYMPHOCYTES % (AUTO) 15 % (12-44); MEAN CORPUSCULAR HEMOGLOBIN 31 PG (25-34); MEAN CORPUSCULAR HGB CONC 34 G/DL (32-36); MEAN CORPUSCULAR VOLUME 91 FL (80-99); MEAN PLATELET VOLUME 10.8 FL (7.4-10.4); MONOCYTES # (AUTO) 1.4 X 10^3 (0.0-1.0); MONOCYTES % (AUTO) 10 % (0-12); NEUTROPHILS # (AUTO) 9.9 X 10^3 (1.8-7.8); NEUTROPHILS % (AUTO) 73 % (42-75); PLATELET COUNT 209 10^3/uL (130-400); RED BLOOD COUNT 4.03 10^6/uL (4.35-5.85); RED CELL DISTRIBUTION WIDTH 12.8 % (10.0-14.5); WHITE BLOOD COUNT 13.5 10^3/uL (4.3-11.0)
[2017-05-30 13:31] LABS: ALANINE AMINOTRANSFERASE 39 U/L (0-55); ALBUMIN 3.2 GM/DL (3.2-4.5); ANION GAP 12 MMOL/L (5-14); ASPARTATE AMINO TRANSFERASE 28 U/L (5-34); BILIRUBIN,TOTAL 0.5 MG/DL (0.1-1.0); BLOOD UREA NITROGEN 5 MG/DL (7-18); BUN/CREATININE RATIO 9; CALCIUM 8.3 MG/DL (8.5-10.1); CARBON DIOXIDE 17 MMOL/L (21-32); CHLORIDE 107 MMOL/L (98-107); CREATININE SERUM 0.58 MG/DL (0.60-1.30); GFR ESTIMATED > 60; GLUCOSE 70 MG/DL (70-105); MAGNESIUM 1.8 MG/DL (1.8-2.4); POTASSIUM 4.1 MMOL/L (3.6-5.0); SODIUM 136 MMOL/L (135-145); TOTAL PROTEIN 6.1 GM/DL (6.4-8.2)
[2017-05-30] MEDS ORDERED: MAGNESIUM OXIDE (MAG-OX)400 MG TAB PO SCH (14:00)
[2017-05-30] MEDS ORDERED: MAGN400T6 PO (15:23)
[2017-05-30] MEDS ORDERED: METO-351 PO (15:23)
[2017-05-30 15:26] LABS: BILIRUBIN,URINE NEGATIVE (NEGATIVE); KETONES,URINE 1+ (NEGATIVE); LEUKOCYTE ESTERASE ,URINE 1+ (NEGATIVE); NITRITE,URINE NEGATIVE (NEGATIVE); PH,URINE 7 (5-9); PROTEIN,URINE NEGATIVE (NEGATIVE); UROBILINOGEN,URINE NORMAL (NORMAL)
--- NOTE | 2017-05-30 15:30 | Discharge Inst-Women's Service ---
Discharge Inst-Women's Serv Depart Medication/Instructions New, Converted or Re-Newed RX: Transmitted to Pharmacy Instructions rest, fluids, stay out of the heat. Call women's services for pulse greater than 120 Follow up in the office next week Friday at 11:00. Start Toprol 25 mg XL Final Diagnosis supraventricular tachycardia hypomagnesemia third trimester Elevated amniotic fluid Consults/Follow Up Additional Follow Up: Yes (Friday 11 pm 06/04/17) Activity Activity: Activity as Tolerated Driving Instructions: You May Drive NO SMOKING: NO SMOKING Nothing Inside Vagina: No Douching, No [place], No Tampons Diet Discharge Diet: No Restrictions Symptoms to Report to : Fever Over 101 Degrees F, Pain/Pressure in Chest, Pain/Pressure in Jaw labor instruction For Any Problems or Questions: Contact Your Physician, Go to Emergency Room ( women's services) RYAN ANGEL DO May 30, 2017 15:30
[2017-05-30 15:33] LABS: WBC,URINE 0-2 /HPF
--- NOTE | 2017-06-02 13:06 | Physician Query-Final Dx ---
RONEY NINO 06/02/17 1306: Clinic Account Progress/Dx Physician Query: Please give diagnosis Date of Service May 30, 2017 at 11:55 RYAN ANGEL DO 06/26/17 0652: Clinic Account Progress/Dx DIAGNOSIS: Diagnosis maternal tachycardia, third trimester hypomagnesemia RONEY NINO Jun 02, 2017 13:06 RYAN ANGEL DO Jun 26, 2017 06:52
== END 2017-05-30 16:53 | disposition home or self-care (01) ==
LOC: LDRP 11:55 → WSo 11:55
PROVIDERS: ATTEND Obstetrics & Gynecology
DX: O99.89 Other specified diseases and conditions complicating pregnancy, childbirth and the puerperium (principal); R00.0 Tachycardia, unspecified; O99.283 Endocrine, nutritional and metabolic diseases complicating pregnancy, third trimester; E83.42 Hypomagnesemia; Z3A.36 36 weeks gestation of pregnancy
CPT/HCPCS: 36415; 80053; 81000; 83735; 85025; 93005; 99213

== ENCOUNTER 2017-06-20 09:10 | Inpatient (IN) | payer BC, MEDICAID ==
[~2017-06-20] VITALS: Ht 162.6 cm; Wt 89.4 kg
[2017-06-20] VITALS (10 sets, daily range): BP systolic 99–130; BP diastolic 53–76
[~2017-06-20 09:10] MED LIST changes: +MAGN400T6 PO; +METO-351 PO
[2017-06-20] MEDS ORDERED: TERBUTALINE INJ 1 MG/ML (BRETHINE) AMP SC PRN (09:45)
[2017-06-20] MEDS ORDERED: PROMETHAZINE INJ 25 MG/ML (PHENERGAN) AMP IVP ONE (09:45)
[2017-06-20] MEDS ORDERED: MISOPROSTOL 100 MCG (CYTOTEC) TAB PO ONE (09:45)
[2017-06-20] MEDS ORDERED: MINERAL OIL CONCENTRATE 99.9% 15 ML UDC TOP PRN (09:45)
[2017-06-20] MEDS: D5 LR IV SOLUTION 1,000 ML IV SCH ×2 (10:23→18:17)
[2017-06-20 10:33] LABS: BASOPHILS % (AUTO) 0 % (0-10); EOSINOPHILS # (AUTO) 0.1 10^3/uL (0.0-0.3); EOSINOPHILS % (AUTO) 1 % (0-10); LYMPHOCYTES # (AUTO) 1.9 X 10^3 (1.0-4.0); LYMPHOCYTES % (AUTO) 12 % (12-44); MEAN CORPUSCULAR HEMOGLOBIN 31 PG (25-34); MEAN CORPUSCULAR HGB CONC 34 G/DL (32-36); MEAN CORPUSCULAR VOLUME 91 FL (80-99); MEAN PLATELET VOLUME 11.1 FL (7.4-10.4); MONOCYTES # (AUTO) 1.1 X 10^3 (0.0-1.0); MONOCYTES % (AUTO) 7 % (0-12); NEUTROPHILS # (AUTO) 12.1 X 10^3 (1.8-7.8); NEUTROPHILS % (AUTO) 80 % (42-75); PLATELET COUNT 196 10^3/uL (130-400); RED BLOOD COUNT 4.17 10^6/uL (4.35-5.85); WHITE BLOOD COUNT 15.1 10^3/uL (4.3-11.0)
[2017-06-20 12:35] LABS: BILIRUBIN,URINE NEGATIVE (NEGATIVE); KETONES,URINE NEGATIVE (NEGATIVE); LEUKOCYTE ESTERASE ,URINE 1+ (NEGATIVE); NITRITE,URINE NEGATIVE (NEGATIVE); PH,URINE 7 (5-9); PROTEIN,URINE 1+ (NEGATIVE); UROBILINOGEN,URINE NORMAL (NORMAL)
[2017-06-20 12:44] LABS: SQUAMOUS EPITHELIAL CELL,UR >50 /HPF; WBC,URINE RARE /HPF
[2017-06-20] MEDS ORDERED: CATHETER FLUSH 10 ML SYR IV SCH (14:00)
[2017-06-20] MEDS: MISOPROSTOL 100 MCG (CYTOTEC) TAB PO SCH ×3 (14:32→22:54)
[2017-06-21] VITALS (16 sets, daily range): BP systolic 88–126; BP diastolic 49–74
[2017-06-21] MEDS: D5 LR IV SOLUTION 1,000 ML IV SCH ×2 (02:20→10:44)
[2017-06-21] MEDS: MISOPROSTOL 100 MCG (CYTOTEC) TAB PO SCH ×2 (02:47→07:04)
--- NOTE | 2017-06-21 11:20 | Progress Note-Standard ---
Standard Progress Note Progress Notes/Assess & Plan Date Seen by Provider: Jun 21, 2017 Time Seen by Provider: 11:05 Progress/Assessment & Plan Patient was sent from the office yesterday due to ROM at term. Also non reassuring testing. (borderline on 06/18; reactive on 06/20) Cervix was not favorable so she has received 5 doses of oral Cytotec. She has not made progress to active labor. Fetus is cephalic and had polyhydramnios but has not had much more leakage since the initial huge gush of fluid. In addition, cervix is not dilated enough to insert a catheter. I have offered other options for cervical ripening but the patient has declined and has requested section at this time. Will stop cervical ripening and proceed with section. Due to ROM, will pretreat with Zithromax. Also has a cephalosporin allergy. GBS - so will give clindamycin. Risks of the procedure include - bleeding, infection, injury to bowel, bladder and ureter. Consents have been signed. NPO now and preoperative antibiotics as listed. RYAN ANGEL DO Jun 21, 2017 11:20
[2017-06-21] MEDS: LACTATED RINGERS 1,000 ML IV PRN ×2 (11:22→12:57)
[2017-06-21] MEDS ORDERED: CLINDAMYCIN INJECTION 900 MG in NS (IVPB) 50 ML IV ONE (11:30)
[2017-06-21] MEDS ORDERED: METOCLOPRAMIDE INJ 10 MG/2 ML (REGLAN) IV ONE (11:30)
[2017-06-21] MEDS ORDERED: AZITHROMYCIN INJECTION 500 MG in NS (IVPB) 250 ML IV ONE (11:30)
[2017-06-21] MEDS ORDERED: FAMOTIDINE 20MG/2ML IV (PEPCID) IV ONE (11:30)
[2017-06-21] MEDS ORDERED: CITRIC ACID/SOB CIT (BICITRA) 30 ML UDC PO ONE (11:30)
[2017-06-21] MEDS ORDERED: ONDANSETRON 4 MG/2 ML (SDV) Z0FRAN ONE (11:38)
[2017-06-21] MEDS ORDERED: DEXAMETHASONE PF 10 MG/ML (DECADRON) VIAL ONE (11:38)
[2017-06-21] MEDS ORDERED: fentaNYL INJECTION 100 MCG/2 ML AMP ONE (11:38)
[2017-06-21] MEDS ORDERED: OXYTOCIN/NORMAL SALINE 1,000 ML IV ONE (11:38)
[2017-06-21] MEDS ORDERED: LACTATED RINGERS 1,000 ML IV ONE (12:51)
[2017-06-21] MEDS ORDERED: OXYTOCIN/NORMAL SALINE 500 ML IV SCH (12:52)
[2017-06-21] MEDS ORDERED: D5 LR IV SOLUTION 1,000 ML IV SCH (12:52)
[2017-06-21] MEDS ORDERED: ONDANSETRON 4 MG/2 ML (SDV) Z0FRAN IVP PRN (13:00)
[2017-06-21] MEDS ORDERED: TETANUS,DIPTH,PERTUSS P/F (BOOSTRIX) 0.5 ML VIAL IM SCH (13:00)
[2017-06-21] MEDS ORDERED: MEASLES,MUMPS,RUBELLA 1 EA INJ SC SCH (13:00)
[2017-06-21] MEDS ORDERED: HYDROmorphone (DILAUDID) 2 MG/ML VIAL IVP PRN (13:00)
--- NOTE | 2017-06-21 13:00 | Cesarean Section Operative ---
Procedure Procedure Note Pre-operative Diagnosis: Roxanne Garcia is a 22 /Para 1/ 0, Gestational Age 39 2/7 weeks, rom, failed induction, failure to progress Post-operative Diagnosis: same, OP presentation, nuchal cord x 1 reduced Procedure: primary low transverse section Physician: RYAN ANGEL Engineering Drawings Checker: [] Estimated blood loss: 600 mL Disposition: [] Findings: Viable male , Apgars 9/9, weight 7#, intact placenta, 3vc, normal appearing uterus, tubes, and ovaries. Indications:Roxanne Garcia is a 22 /Para 1/ 0,Gestational Age 39 2/7 weeks, rom, failed induction, failure to progress Procedure Details: The patient was seen in pre-op and the procedure was discussed with the patient in full, including the risks, benefits, and alternatives. All questions were answered. The patient was taken to the operating room and a time out was performed, verifying patient and procedure. After spinal anesthesia was placed by our anesthesia colleagues, the patient was placed in the dorsal supine with leftward tilt for uterine displacement.~ Her abdomen was then prepped and draped in the typical sterile fashion. A Pfannenstiel skin incision was made using a scalpel and carried down through the underlying fascia. The fascia was incised in the midline and tented up using Colby clamps. On both the inferior and superior fascia side the rectus muscle was dissected off bluntly and sharply using Waller scissors. The peritoneum was identified and entered bluntly in the midline. This was then stretched laterally using manual strength. After entering the abdominal cavity and confirming lack of intraperitoneal adhesions, a large Edgar retractor was placed and the lower uterine segment was visualized. A bladder flap was created with the use of Metzenbaum scissors.~ A scalpel was utilized to make a low transverse uterine incision. Amniotomy was performed with an Allis clamp with return of clear fluid. The infant's head was grasped and brought to the level of the incision. Fundal pressure was applied and infant was delivered without difficulty. Mouth and nares were suctioned with bulb suction. After the umbilical cord was clamped and cut, the was handed off to the pediatric staff. A sample of cord blood was then obtained. The placenta was delivered intact via uterine massage. The uterus was exteriorized and cleared of all clots and debris. The uterine incision was closed using 0 Vicryl in a running locked fashion. A second imbricated layer was placed using 0 Vicryl in a running fashion as well. The uterus was flexed forward and the posterior rectouterine space was inspected and cleared of all clots and debris. Again the hysterotomy site was examined and hemostasis was observed. The bilateral tubes and ovaries appeared normal. The uterus was placed back into the abdominal cavity and abdominal gutters were cleared of all clots and debris. A final check of the uterine incision showed it to be hemostatic. The peritoneum was closed using 3-0 Vicryl in a running fashion. The fascia was closed with 0 Vicryl in a running fashion. The subcutaneous space was hemostatic, and irrigated. The subcutaneous space was closed with 3-0 Vicryl in several single interrupted stitches. The skin was then closed using 4- 0 Monocryl in a running subcuticular fashion. The skin edges were reapproximated together and were hemostatic. A pressure dressing was applied. All sponge, lap and needle counts were correct at the end of the procedure per nursing. Vitals - Labs Vital Signs - I&O Vital Signs Date Time Temp Pulse Resp B/P (MAP) Pulse Ox O2 Delivery O2 Flow Rate FiO2 06/21/17 09:31 96.8 79 18 122/70 Room Air 06/21/17 08:51 67 18 105/55 Room Air 06/21/17 08:00 97.9 77 18 104/60 Room Air 06/21/17 07:00 59 18 113/61 Room Air 06/21/17 06:00 54 18 112/62 Room Air 06/21/17 05:00 81 18 104/55 Room Air 06/21/17 04:00 64 18 113/56 Room Air 06/21/17 03:00 97.3 67 18 88/49 Room Air 06/21/17 02:00 77 18 99/58 Room Air 06/21/17 01:00 72 18 111/65 Room Air 06/21/17 00:00 67 18 120/62 Room Air 06/20/17 23:00 71 18 104/57 Room Air 06/20/17 22:00 71 18 104/57 Room Air 06/20/17 21:00 98.5 78 18 99/53 Room Air 06/20/17 20:00 84 18 115/72 Room Air 06/20/17 18:15 98.2 74 18 120/76 Room Air 06/20/17 15:15 96.2 06/20/17 14:30 86 18 113/73 Room Air 06/20/17 13:50 98.2 06/20/17 13:50 75 18 105/61 Room Air I & O 06/21/17 07:00 Intake Total 1000 ml Balance 1000 ml Labs Microbiology 06/20/17 Urine Culture - Preliminary, Resulted RYAN ANGEL DO Jun 21, 2017 12:59
[2017-06-21] MEDS ORDERED: NALOXONE 0.4 MG/ML 1 ML (NARCAN) VIAL IV PRN ×2 (13:15)
[2017-06-21] MEDS ORDERED: ONDANSETRON 4 MG/2 ML (SDV) Z0FRAN IV PRN (13:15)
[2017-06-21] MEDS ORDERED: diphenhydrAMINE 50 MG/ML INJ (BENADRYL) IV PRN (13:15)
[2017-06-21] MEDS ORDERED: METOCLOPRAMIDE INJ 10 MG/2 ML (REGLAN) IV PRN (13:15)
[2017-06-21] MEDS ORDERED: CATHETER FLUSH 10 ML SYR IV SCH (14:00)
[2017-06-21] MEDS: KETOROLAC 30 MG/ML VIAL IVP SCH ×2 (14:14→21:00)
[2017-06-21] MEDS: HYDROcodone/APAP 5 MG/325 MG (LORTAB) TAB PO PRN (17:10)
[2017-06-22] MEDS: DOCUSATE SODIUM 100 MG (COLACE) CAP PO SCH ×3 (00:17→20:53)
[2017-06-22] MEDS: HYDROcodone/APAP 5 MG/325 MG (LORTAB) TAB PO PRN ×4 (00:17→19:02)
[2017-06-22] MEDS: KETOROLAC 30 MG/ML VIAL IVP SCH ×2 (03:26→19:30)
[2017-06-22 04:00] VITALS: BP 102/66
[2017-06-22 07:05] LABS: BASOPHILS % (AUTO) 0 % (0-10); EOSINOPHILS # (AUTO) 0.1 10^3/uL (0.0-0.3); EOSINOPHILS % (AUTO) 0 % (0-10); LYMPHOCYTES # (AUTO) 2.7 X 10^3 (1.0-4.0); LYMPHOCYTES % (AUTO) 12 % (12-44); MEAN CORPUSCULAR HEMOGLOBIN 31 PG (25-34); MEAN CORPUSCULAR HGB CONC 34 G/DL (32-36); MEAN CORPUSCULAR VOLUME 92 FL (80-99); MEAN PLATELET VOLUME 10.7 FL (7.4-10.4); MONOCYTES # (AUTO) 1.8 X 10^3 (0.0-1.0); MONOCYTES % (AUTO) 8 % (0-12); NEUTROPHILS % (AUTO) 79 % (42-75); PLATELET COUNT 210 10^3/uL (130-400); RED BLOOD COUNT 3.93 10^6/uL (4.35-5.85); WHITE BLOOD COUNT 21.5 10^3/uL (4.3-11.0)
[2017-06-22 09:09] VITALS: BP 116/67
[2017-06-22] MEDS: IBUPROFEN 600 MG (MOTRIN) TAB PO SCH ×5 (09:10→20:53)
--- NOTE | 2017-06-22 09:27 | Anesthesia-Regional Post-Op ---
Regional Patient Condition Mental Status: Alert, Oriented x3 Circulation: Same as Pre-Op Headache: Absent Sensation: Full Recovery Motor Block: Absent Post Op Complications Complications None Follow Up Care/Instructions Patient Instructions None needed. Anesthesia/Patient Condition Patient is doing well, no complaints, stable vital signs, no apparent adverse anesthesia problems. No complications reported per nursing. FAHEEM GARNICA CRNA Jun 22, 2017 09:27
--- NOTE | 2017-06-22 09:47 | Postpartum Progress Note ---
Post Op Post-operative Day #1 s/p PLTCS, FTP, OP presentation Subjective: Patient is without complaints. Ambulating, voiding after goode removed. Tolerating a regular diet without nausea or vomiting. Normal lochia. Pain is well controlled with oral pain medications. Passing flatus. [] feeding. [] Objective: Laboratory Tests Test 06/22/17 07:00 Range/Units White Blood Count 21.5 H 4.3-11.0 10^3/uL Red Blood Count 3.93 L 4.35-5.85 10^6/uL Hemoglobin 12.2 11.5-16.0 G/DL Hematocrit 36 35-52 % Mean Corpuscular Volume 92 80-99 FL Mean Corpuscular Hemoglobin 31 25-34 PG Mean Corpuscular Hemoglobin Concent 34 32-36 G/DL Red Cell Distribution Width 13.0 10.0-14.5 % Platelet Count 210 130-400 10^3/uL Mean Platelet Volume 10.7 H 7.4-10.4 FL Neutrophils (%) (Auto) 79 H 42-75 % Lymphocytes (%) (Auto) 12 12-44 % Monocytes (%) (Auto) 8 0-12 % Eosinophils (%) (Auto) 0 0-10 % Basophils (%) (Auto) 0 0-10 % Neutrophils # (Auto) 17.0 H 1.8-7.8 X 10^3 Lymphocytes # (Auto) 2.7 1.0-4.0 X 10^3 Monocytes # (Auto) 1.8 H 0.0-1.0 X 10^3 Eosinophils # (Auto) 0.1 0.0-0.3 10^3/uL Basophils # (Auto) 0.0 0.0-0.1 10^3/uL Vital Sign - Last 12Hours 06/21/17 06/22/17 06/22/17 23:10 04:00 09:09 Temp 97.8 98.0 97.6 Pulse 65 66 67 Resp 20 18 18 B/P (MAP) 116/69 102/66 116/67 Pulse Ox 98 97 O2 Delivery Room Air Room Air Room Air Intake and Output 06/22/17 00:00 Intake Total 2306 ml Output Total 1750 ml Balance 556 ml Physical Exam: General - Alert and oriented, no apparent distress Abdomen - Soft, appropriately tender to palpation, non-distended, fundus firm at umbilicus Incision - clean, dry and intact; no erythema or induration, no drainage Extremities - no edema, negative Yg's bilaterally [] Assessment: [] post-operative day # [], status post []. Recovering well, hemodynamically stable Plan: Routine post-operative care. Encourage breast feeding. Encourage ambulation. VTE prophylaxis: SCDs. Ferrous sulfate supplementation. Plan for discharge tomorrow Vitals - Labs Vital Signs - I&O Vital Signs Date Time Temp Pulse Resp B/P (MAP) Pulse Ox O2 Delivery O2 Flow Rate FiO2 06/22/17 09:09 97.6 67 18 116/67 97 Room Air 06/22/17 04:00 98.0 66 18 102/66 Room Air 06/21/17 23:10 97.8 65 20 116/69 98 Room Air 06/21/17 14:45 Room Air 06/21/17 14:20 97.0 64 20 122/74 Room Air 06/21/17 11:51 65 18 115/61 Room Air 06/21/17 11:48 97.9 80 18 122/61 Room Air 06/21/17 09:50 76 18 126/70 Room Air I & O 06/22/17 07:00 Intake Total 5216 ml Output Total 3825 ml Balance 1391 ml Labs Laboratory Tests 06/22/17 07:00: White Blood Count 21.5H, Red Blood Count 3.93L, Hemoglobin 12.2, Hematocrit 36, Mean Corpuscular Volume 92, Mean Corpuscular Hemoglobin 31, Mean Corpuscular Hemoglobin Concent 34, Red Cell Distribution Width 13.0, Platelet Count 210, Mean Platelet Volume 10.7H, Neutrophils (%) (Auto) 79H, Lymphocytes (%) (Auto) 12, Monocytes (%) (Auto) 8, Eosinophils (%) (Auto) 0, Basophils (%) (Auto) 0, Neutrophils # (Auto) 17.0H, Lymphocytes # (Auto) 2.7, Monocytes # (Auto) 1.8H, Eosinophils # (Auto) 0.1, Basophils # (Auto) 0.0 Microbiology 06/20/17 Urine Culture - Preliminary, Resulted RYAN ANGEL DO Jun 22, 2017 09:47
[2017-06-22 13:57] VITALS: BP 120/76
[2017-06-22 20:53] VITALS: BP 106/69
[2017-06-23 01:57] VITALS: BP 115/69
[2017-06-23] MEDS: IBUPROFEN 600 MG (MOTRIN) TAB PO SCH ×4 (01:57→20:38)
[2017-06-23] MEDS: HYDROcodone/APAP 5 MG/325 MG (LORTAB) TAB PO PRN ×3 (01:57→17:13)
[2017-06-23 08:21] VITALS: BP 122/84
[2017-06-23] MEDS: DOCUSATE SODIUM 100 MG (COLACE) CAP PO SCH ×2 (09:00→20:37)
--- NOTE | 2017-06-23 09:31 | Progress Note-Standard ---
Standard Progress Note Progress Notes/Assess & Plan Date Seen by Provider: Jun 23, 2017 Time Seen by Provider: 09:30 Progress/Assessment & Plan POD #2 s/p PLTCS, FTP, CPD, OP presentation Doing well. Plan discharge today Vital Sign - Last 12Hours 06/23/17 06/23/17 01:57 08:21 Temp 96.6 97.2 Pulse 74 79 Resp 18 18 B/P (MAP) 115/69 122/84 Pulse Ox 98 100 O2 Delivery Room Air Room Air Intake and Output 06/23/17 00:00 Intake Total 1840 ml Output Total 1100 ml Balance 740 ml inc c/d/i DC today RYAN ANGEL DO Jun 23, 2017 09:31
[2017-06-23] MEDS ORDERED: IBUP-1773 PO (09:32)
[2017-06-23] MEDS ORDERED: DOCU100C37 PO (09:32)
[2017-06-23] MEDS ORDERED: HYDR-3812 PO (09:32)
--- NOTE | 2017-06-23 09:37 | Discharge Inst-Women's Service ---
Discharge Inst-Women's Serv Depart Medication/Instructions New, Converted or Re-Newed RX: RX on Chart Final Diagnosis failure to progress cephalopelvic disproportion Occiput posterior presentation Primary section Consults/Follow Up Additional Follow Up: Yes (1-2 weeks with Zaida, 6 weeks for pp exam) Activity Activity: Activity as Tolerated Driving Instructions: No Driving for 1 Week NO SMOKING: NO SMOKING Nothing Inside Vagina: No Douching, No [place], No Tampons Other Activity nothing in vagina for 6 weeks Diet Discharge Diet: No Restrictions Symptoms to Report to DrRubia: Swelling Increased, Bleeding Excessive, Fever Over 101 Degrees F, Vaginal Bleeding Increase, Cramps in Feet or Legs, Vaginal Discharge Foul For Any Problems or Questions: Contact Your Physician Skin/Wound Care Infection Signs and Symptoms: Increased Redness, Foul Odor of Wound, Increased Drainage, Skin Itchy or Has a Rash, Increased Swelling, Temperature Above 101 F Operative Area Clean and Dry: Keep Incision Clean/Dry Stitches/Mya/Dermabond: Dermabond Bathing Instructions: RYAN Marquez DO Jun 23, 2017 09:37
[2017-06-23] MEDS ORDERED: BISACODYL 10 MG SUPP (DULCOLAX) PR NR (10:00)
[2017-06-23 13:25] VITALS: BP 108/69
[2017-06-23] MEDS: BISACODYL 5 MG (DULCOLAX) TABLET PO SCH (17:13)
[2017-06-23 17:16] VITALS: BP 106/67
[2017-06-23 20:00] VITALS: BP 118/82
[2017-06-24 02:30] VITALS: BP 101/61
[2017-06-24] MEDS: IBUPROFEN 600 MG (MOTRIN) TAB PO SCH ×2 (02:34→08:44)
--- NOTE | 2017-06-24 07:56 | Progress Note-Standard ---
Standard Progress Note Progress Notes/Assess & Plan Date Seen by Provider: Jun 24, 2017 Time Seen by Provider: 07:51 Progress/Assessment & Plan POD #3 s/p PLTCS, FTP, CPD, OP presentation Doing well. DC held yesterday due to pain and lack of bowel progress. Plan discharge today Vital Sign - Last 12Hours 06/23/17 06/24/17 20:00 02:30 Temp 96.1 97.3 Pulse 70 65 Resp 16 17 B/P (MAP) 118/82 101/61 Pulse Ox 100 99 O2 Delivery Room Air Room Air Intake and Output 06/24/17 00:00 Intake Total 1000 ml Output Total 600 ml Balance 400 ml RYAN ANGEL DO Jun 24, 2017 07:56
[2017-06-24 08:00] VITALS: BP 106/69
[2017-06-24] MEDS: DOCUSATE SODIUM 100 MG (COLACE) CAP PO SCH (08:44)
[2017-06-24] MEDS: BISACODYL 5 MG (DULCOLAX) TABLET PO SCH (08:44)
== END 2017-06-24 11:00 | disposition home or self-care (01) | DRG 765 ==
LOC: LDRP 09:10
PROVIDERS: ADMIT Obstetrics & Gynecology; ATTEND Obstetrics & Gynecology
PROC: 10D00Z1 Extraction of Products of Conception, Low, Open Approach (ICD-10-PCS; principal; 2017-06-21 12:30)
DX: O42.92 Full-term premature rupture of membranes, unspecified as to length of time between rupture and onset of labor (principal); O40.3XX0 Polyhydramnios, third trimester, not applicable or unspecified; O76 Abnormality in fetal heart rate and rhythm complicating labor and delivery; O69.81X0 Labor and delivery complicated by cord around neck, without compression, not applicable or unspecified; O33.9 Maternal care for disproportion, unspecified; Z3A.39 39 weeks gestation of pregnancy; Z37.0 Single live birth; Z23 Encounter for immunization
CPT/HCPCS: 36415; 81000; 85025; 86850; 86900; 86901; 87088; 90707; 94664; 99212